=== PATIENT | female | born 1995 | race Caucasian/White ===

== ENCOUNTER 2020-05-29 20:14 | Emergency (ER) | payer MEDICAID ==
[~2020-05-29] VITALS: Ht 152.4 cm; Wt 63.6 kg
[2020-05-29] MEDS ORDERED: IBUPROFEN 600MG TABLET PO STA (20:49)
[2020-05-29] MEDS ORDERED: ACETAMINOPHEN 325MG TABLET PO STA (20:49)
[2020-05-29 21:28] VITALS: BP 119/74
== END 2020-05-29 23:06 | disposition home or self-care (01) ==
LOC: ER 20:14
DX: B34.9 Viral infection, unspecified (principal); R19.7 Diarrhea, unspecified; Z20.828 Contact with and (suspected) exposure to other viral communicable diseases
CPT/HCPCS: 71045; 87635; 99284; C9803